=== PATIENT | female | born 2000 | race Caucasian/White ===

== ENCOUNTER 2022-06-19 10:35 | Emergency (ER) | payer BC ==
[~2022-06-19] VITALS: Ht 154.9 cm; Wt 56.7 kg
[2022-06-19 10:39] VITALS: BP 122/77
--- NOTE | 2022-06-19 10:50 | NUR ---
22YO FEMALE PT C/O PELVIC CRAMPING, VAGINAL PAIN AND MILD BLEEDING XYESTERDAY. REPORTS SUDDEN INTERMITTENT EPISODES. STATES BEING EST 8WEEKS ,G1 LMP 04/26/22. HAS NOT BEEN SEEN BY AN OB AND RECOMMENDED BY PCP TO COME TO ER. DENIES TAKING MEDICATION ,N/V/D, CHEST PAIN, SOB, FEVER OR CHILLS. PT AAOX4, NO VISIBLE DISTRESS. HOB POSITIONED PER COMFORT. HX:DENIES NKA
--- NOTE | 2022-06-19 10:53 | NUR ---
US AT BEDSIDE
[2022-06-19 11:48] LABS: BASOPHILS % (AUTO) 0.5 % (0.0-2.0); EOSINOPHILS # (AUTO) 0.1 K/uL (0-0.4); EOSINOPHILS % (AUTO) 1.5 % (0.0-4.0); HEMATOCRIT 39.2 % (36-48); HEMOGLOBIN 13.1 g/dL (12.0-16.0); LYMPHOCYTES # (AUTO) 1.7 K/uL (2.5-16.5); MEAN CORPUSCULAR HEMOGLOBIN 30 pg (27-31); MEAN CORPUSCULAR HGB CONC 34 g/dL (33-37); MEAN CORPUSCULAR VOLUME 89.3 fL (80-94); MONOCYTES # (AUTO) 0.4 K/uL (0.8-1.0); MONOCYTES % (AUTO) 5.4 % (1.7-9.3); NEUTROPHILS # (AUTO) 5.2 K/uL (1.8-7.7); NEUTROPHILS % (AUTO) 69.6 % (42.2-75.2); PLATELET COUNT (AUTO) 316 K/uL (140-450); RED BLOOD CELL COUNT(AUTO) 4.39 MIL/uL (4.20-5.40); RED CELL DISTRIBUTION WIDTH 14.1 % (11.6-13.7); WHITE BLOOD COUNT (AUTO) 7.4 K/uL (4.8-10.8)
[2022-06-19 11:57] LABS: APPEARANCE,URINE HAZY (CLEAR); BILIRUBIN,URINE NEGATIVE (NEGATIVE); BLOOD, URINE TRACE-I (NEGATIVE); COLOR,URINE YELLOW (YELLOW); LEUKOCYTE ESTERASE ,URINE 2+ (NEGATIVE); NITRITE, URINE POSITIVE (NEGATIVE); UGLUCOSE NEGATIVE (NEGATIVE)
--- NOTE | 2022-06-19 12:05 | NUR ---
LAB AT BEDSIDE
[2022-06-19 12:08] LABS: RBC,URINE NONE SEEN /HPF (0-5)
[2022-06-19] MEDS ORDERED: CEPH-588 PO (13:14)
[2022-06-19 13:19] VITALS: BP 122/81
--- NOTE | 2022-06-19 13:19 | NUR ---
Patient discharged with v/s stable. Written and verbal after care instructions FOR THREATENED MISSCARRIAGE AND UTI given and explained. Patient alert, oriented and verbalized understanding of instructions. Ambulatory with steady gait. All questions addressed prior to discharge. ID band removed. Patient advised to follow up with PMD. Rx of KEFLEX given. Opportunity to ask questions provided and answered.
--- NOTE | 2022-06-19 13:29 | NUR ---
The patient's care was reviewed and supervised by Norma Carrasquillo, RN, RN.
== END 2022-06-19 13:19 | disposition home or self-care (01) ==
LOC: MED 10:35
DX: O20.0 Threatened abortion (principal); O23.41 Unspecified infection of urinary tract in pregnancy, first trimester; N39.0 Urinary tract infection, site not specified; Z3A.01 Less than 8 weeks gestation of pregnancy
CPT/HCPCS: 36415; 76817; 81001; 81025; 84702; 85025; 86900; 86901; 87086; 99285; Q0092